=== PATIENT | female | born 1955 | race Caucasian/White ===

== ENCOUNTER → 2016-09-02 | Outpatient (CLI) | payer MEDICAID ==
[~2016-09-02] MED LIST: CALCIUM 600600 MG PO; CARDI-OMEGA1000 MG PO; HCTZ; HCTZ 25MG25 MG PO; JANUVIA100 MG PO; LISINOPRIL10 MG PO; METAPROLOL; NORCO 325 MG-7.1 TAB PO; TYLENOL ARTHRITIS
== END ==
LOC: MC.RAD 13:38
DX: Z12.31 Encounter for screening mammogram for malignant neoplasm of breast (principal)

== ENCOUNTER 2018-04-04 17:02 | Inpatient (IN) | payer MEDICAID ==
[~2018-04-04] VITALS: Ht 157.5 cm; Wt 125.0 kg
[2018-04-04 17:24] LABS: BASO # 0.1 (0.0-0.2); BASO % 0.4 % (0.0-2.0); EOS % 0.1 % (0-4.0); GRAN % 88.3 % (42.2-75.2); HEMATOCRIT 48.6 % (37.0-47.0); HEMOGLOBIN 16.6 g/dl (12.5-16.0); LYMPH # 1.4 (1.2-3.4); LYMPH % 7.7 % (20.0-51.0); MEAN CELL VOLUME 87 fl (80.0-100.0); MEAN CORPUSCULAR HEMOGLOBIN 30 pg (27.0-31.0); MEAN CORPUSCULAR HGB CONC 34 g/dl (33.0-37.0); MEAN PLATELET VOLUME 11.3 fl (7.4-10.4); MONO # 0.6 (0.1-0.6); MONO % 3.1 % (1.7-9.3); PLATELET COUNT 266 K/mm3 (130-400); RED BLOOD COUNT 5.62 M/mm3 (4.10-5.30); REDCELL DISTRIBUTION WIDTH-CV 13.4 % (11.5-14.5)
[2018-04-04] MEDS ORDERED: GLUCOPHAGE XR500 M1 PO (17:33)
[2018-04-04] MEDS ORDERED: GLUCOTROL 5M5 MG/TAB PO (17:33)
[2018-04-04] MEDS ORDERED: CLARITIN 1010 MG/TAB PO (17:34)
[2018-04-04 17:36] LABS: C-REACTIVE PROTEIN 0.9 mg/dL (0.0-0.9)
[2018-04-04 17:59] LABS: ALBUMIN 4.3 gm/dL (3.5-5.0); BILIRUBIN,TOTAL 0.6 mg/dL (0.0-1.0); CALCIUM 9.3 mg/dL (8.4-10.2); CREATININE, serum 0.67 mg/dL (0.52-1.25); POTASSIUM 4.7 mmol/L (3.4-5.0); TOTAL PROTEIN 7.7 gm/dL (6.4-8.2)
[2018-04-04] MEDS ORDERED: SYNTHROID0.05 MG/TA PO (20:13)
--- NOTE | 2018-04-04 20:15 | NUR ---
Pt arrived to room 349, transferred per wheelchair by ED staff. Pt awake, a&o, cooperative c cares. Da at bedside. INT patent. NG in place, to LIS at this time. Pt/da oriented to room, unit policies et current POC. Questions invited et answered, both verbalize understanding. Pt denies needs. Call light in reach, will monitor.
[2018-04-04 20:28] VITALS: BP 124/69; PULSE 93; TEMP 98.2
[2018-04-04 22:51] VITALS: BP 130/66; PULSE 87; TEMP 98.7
[2018-04-05 03:34] VITALS: BP 112/57; PULSE 81; TEMP 98.5
[2018-04-05 05:54] LABS: BASO # 0.1 (0.0-0.2); BASO % 0.4 % (0.0-2.0); EOS # 0.1 (0.0-0.7); EOS % 0.4 % (0-4.0); GRAN % 69.8 % (42.2-75.2); HEMATOCRIT 42.6 % (37.0-47.0); LYMPH # 3.2 (1.2-3.4); LYMPH % 22.4 % (20.0-51.0); MEAN CELL VOLUME 90 fl (80.0-100.0); MEAN CORPUSCULAR HEMOGLOBIN 30 pg (27.0-31.0); MEAN CORPUSCULAR HGB CONC 33 g/dl (33.0-37.0); MEAN PLATELET VOLUME 11.3 fl (7.4-10.4); MONO # 0.9 (0.1-0.6); MONO % 6.6 % (1.7-9.3); PLATELET COUNT 247 K/mm3 (130-400); RED BLOOD COUNT 4.72 M/mm3 (4.10-5.30); REDCELL DISTRIBUTION WIDTH-CV 13.9 % (11.5-14.5)
[2018-04-05 06:01] LABS: ALBUMIN 3.6 gm/dL (3.5-5.0); BILIRUBIN,TOTAL 0.5 mg/dL (0.0-1.0); CALCIUM 8.7 mg/dL (8.4-10.2); CREATININE, serum 0.66 mg/dL (0.52-1.25); POTASSIUM 4.5 mmol/L (3.4-5.0); TOTAL PROTEIN 6.7 gm/dL (6.4-8.2)
[2018-04-05 07:30] VITALS: BP 98/56; PULSE 80; TEMP 97.6
--- NOTE | 2018-04-05 11:09 | NUR ---
Initial visit; Patient and family thanked Cloth Shrinking Machine Operator Helper for looking in on her and offering God's blessings and to keep her in Cl[employer] Shrinking [employer] Operator Helper's prayers.
[2018-04-05 11:39] VITALS: BP 123/69; PULSE 79; TEMP 97.7
--- NOTE | 2018-04-05 13:38 | NUR ---
MARINO and SW student met with patient and her son to discuss discharge planning. Patient reports she lives independently in [place] with her son who is 18. Patients PCP is Dr Mary Elizabeth and she obtains her medications from [facility]. Patient reports no problems obtaining medications. She does not have a dpoa and is not interested in filling one out. She reports she has four children over 18 and they all get along. SW does not anticipate any discharge needs at this time.
--- NOTE | 2018-04-05 14:02 | NUR ---
Patient alert and oriented, answers questions appropriately. See assessment. NGT to left nare patent, connected to LIS, small amount of brown drainage noted in canister. BS hypoactive. Abdomen soft, non distended, non tender. +Flatus. No nausea. No other c/o at this time.
[2018-04-05 15:24] VITALS: BP 128/71; PULSE 74; TEMP 97.7
[2018-04-05 20:51] VITALS: BP 120/72; PULSE 80; TEMP 98.8
--- NOTE | 2018-04-05 21:30 | NUR ---
Patient sitting up in bed. Denies nausea or vomiting after eating evening meal. Has NGT to right nare, clamped at this time. Abdomen soft, bowel sounds active. IVF to right hand infusing without redness or swelling. Reports passing flatus. DC'd NGT at this time.
[2018-04-05 23:45] VITALS: BP 125/60; PULSE 71; TEMP 98.1
--- NOTE | 2018-04-06 05:00 | NUR ---
No nausea or vomiting since NGT removed last PM. Denies having BM yet this AM.
[2018-04-06 06:04] LABS: HEMATOCRIT 39.4 % (37.0-47.0); MEAN CELL VOLUME 91 fl (80.0-100.0); MEAN CORPUSCULAR HEMOGLOBIN 30 pg (27.0-31.0); MEAN CORPUSCULAR HGB CONC 33 g/dl (33.0-37.0); MEAN PLATELET VOLUME 11.1 fl (7.4-10.4); PLATELET COUNT 213 K/mm3 (130-400); RED BLOOD COUNT 4.35 M/mm3 (4.10-5.30); REDCELL DISTRIBUTION WIDTH-CV 13.7 % (11.5-14.5)
[2018-04-06 06:16] LABS: ALBUMIN 3.5 gm/dL (3.5-5.0); BILIRUBIN,TOTAL 0.5 mg/dL (0.0-1.0); CALCIUM 8.8 mg/dL (8.4-10.2); CREATININE, serum 0.61 mg/dL (0.52-1.25); TOTAL PROTEIN 6.4 gm/dL (6.4-8.2)
[2018-04-06 06:34] VITALS: BP 114/66; PULSE 70; TEMP 98.1
[2018-04-06 06:38] LABS: BAND 5 % (0-10); EOSINOPHIL 1 % (0-4); LYMPHOCYTE 31 % (20.0-51.0); NEUTROPHILS 61 % (42.0-75.2)
[2018-04-06 06:45] LABS: PLATELET ESTIMATE NORMAL (NORMAL)
--- NOTE | 2018-04-06 07:00 | NUR ---
Patient awake, reports having a BM this AM. Denies diarrhea, reports "it was a normal BM for me".
[2018-04-06 07:52] VITALS: BP 125/68; PULSE 69; TEMP 97.8
--- NOTE | 2018-04-06 08:00 | NUR ---
PATIENT SITTING AT THE EDGES OF THE BED WITH HER BREAKFAST TRAY THIS MORNING. PATIENT IS A&O. VSS. BOWEL SOUNDS ACTIVE ALL FOUR QUADRANTS. PATIENT TOLERATING SOFT MECHANICAL FOODS & LIQUIDS WITHOUT ANY COMPLAINTS OF N/V. PATIENT PASSING FLATUS. POSITIVE PEDAL PULSES EQUAL BILATERALLY. IV FLUIDS INFUSING TO LEFT HAND IV VIA PUMP. PATIENT DENIES ANY PAIN AT THIS TIME. CALL LIGHT WITHIN REACH. NO OTHER NEEDS AT THIS TIME.
[2018-04-06 11:50] VITALS: BP 126/76; PULSE 72; TEMP 97.9
--- NOTE | 2018-04-06 13:08 | NUR ---
PATIENT'S LEFT HAND IV DC'D PER PENDING DISCHARGE. PATIENT TOLERATED WELL.
--- NOTE | 2018-04-06 14:45 | NUR ---
DISCHARGE INSTRUCTIONS REVIEWED WITH PATIENT AND FRIEND. ALL QUESTIONS ANSWERED. PATIENT AMBULATED TO PERSONAL VEHICLE WITH SURGICAL STAFF. PATIENT DISCHARGED.
== END 2018-04-06 14:45 | disposition home or self-care (01) | DRG 389 ==
LOC: COL.ER 17:02 → SURG 18:50
PROVIDERS: Emergency Medicine; ADMIT Surgery
PROC: 0D9670Z Drainage of Stomach with Drainage Device, Via Natural or Artificial Opening (ICD-10-PCS; principal; 2018-04-04)
DX: K56.600 Partial intestinal obstruction, unspecified as to cause (principal); Z68.43 Body mass index [BMI] 50.0-59.9, adult; I10 Essential (primary) hypertension; E11.9 Type 2 diabetes mellitus without complications; E66.9 Obesity, unspecified
CPT/HCPCS: J2270; J2405; J2550; J7030; J7120; Q9967